=== PATIENT | female | born 1985 | race Caucasian/White ===

== ENCOUNTER 2023-12-25 10:06 | Emergency (ER) | payer SELFPAY ==
[~2023-12-25] VITALS: Ht 162.6 cm; Wt 84.0 kg
[2023-12-25 10:15] VITALS: BP 143/94; PULSE 66; RESP 17; TEMP 97; O2SAT 99
[2023-12-25] MEDS: KETOROLAC 30 MG/ML VIAL IM ONE (10:53)
[2023-12-25] MEDS: LIDOCAINE 5% 1 EA PATCH TP ONE (11:13)
[2023-12-25] MEDS ORDERED: IBUP-2218 PO (11:29)
[2023-12-25] MEDS ORDERED: DICL20GE TP (11:29)
[2023-12-25] MEDS ORDERED: CYCL-711 PO (11:29)
[2023-12-25 11:37] VITALS: BP 112/58; PULSE 58; RESP 16; TEMP 97; O2SAT 100
== END 2023-12-25 11:39 | disposition home or self-care (01) ==
LOC: MED 10:06
DX: M54.30 Sciatica, unspecified side (principal); M54.50 Low back pain, unspecified; Z79.899 Other long term (current) drug therapy
CPT/HCPCS: 72110; 81002; 81025; 96372; 99283; J1885